=== PATIENT | female | born 1985 | race Caucasian/White ===

== ENCOUNTER 2020-02-21 13:33 | Emergency (ER) | payer OTHER ==
[~2020-02-21] VITALS: Ht 162.6 cm; Wt 68.0 kg
[2020-02-21] MEDS ORDERED: PROAIR HFA8.5 GM INH (13:41)
[2020-02-21 14:23] LABS: ABSOLUTE EOSINOPHILS 0.2 thou/uL (0.0-0.7); ABSOLUTE LYMPHOCYTES 1.4 thou/uL (0.8-5.3); ABSOLUTE MONOCYTES 0.8 thou/uL (0.0-1.2); ABSOLUTE NEUTROPHILS 7.9 thou/uL (1.6-8.1); BASOPHILS 0.4 %; HEMATOCRIT 38.2 % (37.0-47.0); HEMOGLOBIN 13.2 gm/dL (12.0-15.0); LYMPHOCYTES 13.4 %; MCHC 34.6 g/dL (28.0-37.0); MCV 86.7 fL (80.0-100.0); MONOCYTES 7.6 %; MPV 7.5 fl. (7.2-11.1); NUCLEATED RBCS 0 /100WBC; PLATELET COUNT* 267 thou/uL (150-400); POLYS 76.6 %; RDW-CV 13.2 % (10.5-14.5); WBC 10.3 thou/uL (4.0-11.0)
[2020-02-21 14:33] LABS: CALCIUM 8.6 mg/dL (8.5-10.1); CREATININE 0.8 mg/dL (0.6-1.3); POTASSIUM 3.5 mmol/L (3.5-5.1)
[2020-02-21 14:43] LABS: ALBUMIN 3.8 g/dL (3.4-5.0); TOTAL BILIRUBIN 0.6 mg/dL (<0.1-1.0); TOTAL PROTEIN 7.3 g/dL (6.4-8.2)
[2020-02-21 16:02] LABS: URINE BILIRUBIN NEGATIVE (Negative); URINE BLOOD TRACE (Negative); URINE CLARITY CLEAR; URINE COLOR YELLOW; URINE GLUCOSE-RANDOM NEGATIVE (Negative); URINE KETONES NEGATIVE (Negative); URINE LEUKOCYTES-REFLEX NEGATIVE (Negative); URINE NITRITE-REFLEX NEGATIVE (Negative); URINE PROTEIN NEGATIVE (Negative); URINE UROBILINOGEN 0.2 E.U./dl (0.2-1.0)
[2020-02-21] MEDS ORDERED: HYDROXYZINE HCL25 M2 PO (16:47)
[2020-02-21] MEDS ORDERED: PREDNISONE 20 M20 MG PO (16:47)
[2020-02-21] MEDS ORDERED: VENTOLIN HFA 1818 GM INH (16:47)
[2020-02-21 17:06] VITALS: BP 102/52
--- NOTE | 2020-02-22 13:21 | EKG ---
[place] [address] ELECTROCARDIOGRAM REPORT Name: CHRISMANDI Devi Room: [facility]#: [id number] Admission: 02/21/20 Attend Phys: Discharge: 02/21/20 Date of : 83 Date of Service: 02/21/20 1435 Report #: [id number] THIS REPORT FOR: //name// [facility] ED Test Date: 2020-02-21 Test Time: 14:35:01 Pat Name: MANDI PEREZ Department: Room: Gender: [employer]: [facility] : 1985 Requested By: Marcia Chao Order Number: [id number] MD: Thai Rodriguez Measurements Intervals [place] Rate: 67 P: 55 AK: 177 QRS: 31 QRSD: 92 T: 24 QT: 401 QTc: 424 Interpretive Statements Sinus rhythm Baseline wander in lead(s) V4 No previous ECG available for comparison Electronically Signed On 02-22-2020 13:21:01 CDT by Thai Rodriguez [email or web address] <ELECTRONICALLY SIGNED> By: Thai Rodriguez MD, [facility] 02/22/20 1321 1435 143 Thai Rodriguez MD, [facility] /EPI
== END 2020-02-21 17:07 | disposition home or self-care (01) ==
LOC: M.ERS 13:33
PROVIDERS: Nurse Practitioner Family
DX: J45.901 Unspecified asthma with (acute) exacerbation (principal); F41.9 Anxiety disorder, unspecified; R19.7 Diarrhea, unspecified; Z20.828 Contact with and (suspected) exposure to other viral communicable diseases; Z98.51 Tubal ligation status